=== PATIENT | female | born 1970 | race Asian ===

== ENCOUNTER 2023-08-22 15:55 | Outpatient (RCR) | payer OTHER, SELFPAY | END 2023-08-22 23:59 | disposition home or self-care (01) | LOC: RPT 15:55 | PROVIDERS: ATTENDING PHYSICIAN Nurse Practitioner Family; FAMILY PHYSICIAN Internal Medicine | DX: M25.552 Pain in left hip (principal) | CPT/HCPCS: 97110; 97140; 97161 ==

== ENCOUNTER → 2023-08-26 07:06 | Outpatient (REF) | payer BC, SELFPAY | LOC: WDC 07:06 | PROVIDERS: ATTENDING PHYSICIAN Internal Medicine | DX: Z12.31 Encounter for screening mammogram for malignant neoplasm of breast (principal) | CPT/HCPCS: 77063; 77067 ==

== ENCOUNTER 2023-09-12 15:14 | Outpatient (RCR) | payer OTHER, SELFPAY | END 2023-09-12 23:59 | disposition home or self-care (01) | LOC: RPT 15:14 | PROVIDERS: ATTENDING PHYSICIAN Nurse Practitioner Family; FAMILY PHYSICIAN Internal Medicine | DX: M25.552 Pain in left hip (principal); Z73.6 Limitation of activities due to disability; R20.2 Paresthesia of skin; R20.0 Anesthesia of skin; S73.192D Other sprain of left hip, subsequent encounter; W50.0XXD Accidental hit or strike by another person, subsequent encounter; Y93.F9 Activity, other caregiving; Y92.239 Unspecified place in hospital as the place of occurrence of the external cause; Y99.0 Civilian activity done for income or pay | CPT/HCPCS: 97110; 97112; 97140 ==

== ENCOUNTER 2024-03-14 17:09 | Emergency (ER) | payer OTHER, SELFPAY ==
[2024-03-14 17:23] VITALS: BP 115/66; BMI 23.1
--- NOTE | 2024-03-14 17:46 | ED.GENMED ---
History of Present Illness
General
Chief Complaint: Blood and Body Fluid Exposure
Source: patient
Exam Limitations: none
Time Seen by Provider: 03/14/24 17:30
History of Present Illness
History of Present Illness:
53-year-old female presents for potential blood exposure. She works here on the IV team and was helping with a PICC line and some fluid was taken off of the wire and splashed her in the eye. The wire was inside of the source patient. The source
patient is here as an inpatient. The floor of the source patient is is aware that this happened and source patient will be tested for communicable diseases. This patient washed her eye out copiously with water. She has no complaints otherwise
Past History
Past History
ED Past Medical History: None
ED Past Surgical History: None
Social History
Tobacco: Non-smoker
Alcohol: None
Drug: None
Personal:
Living: with family
Phy Exam
Physical Exam
Physical Exam:
General: Well-appearing female no acute distress
HEENT: Normocephalic sclera noninjected
Course
Orders/Labs/Results
Orders:
Orders
03/14/24 17:30
Pt has had a significant HIV exposure? Routine
HIV Exposure is significant?: Yes
HIV Combo Urgent
Hepatitis B Surface Antibody Urgent
Hepatitis B Surface Antigen Urgent
Hepatitis C Antibody Urgent
Vital Signs
Initial and Last Documented VS:
Initial Vital Signs
Temp Pulse Resp BP Pulse Ox
97.9 F 72 16 115/66 99
03/14/24 17:23 03/14/24 17:23 03/14/24 17:23 03/14/24 17:23 03/14/24 17:23
Last Documented Vital Signs
Temp Pulse Resp BP Pulse Ox
97.9 F 72 16 115/66 99
03/14/24 17:23 03/14/24 17:23 03/14/24 17:23 03/14/24 17:23 03/14/24 17:23
MDM/Problems Addressed
Differential Diagnosis Includes:
Potential blood exposure to the eye. This is low risk but exposure profile was drawn. The source patient will also be tested. Discussed option for postexposure prophylaxis however patient declined at this time. I think this is reasonable.
Stable for discharge and follow-up with occupational health
*Critical Care Note
Total Time (30-74mins, 75-104mins- exclusive of procedures): Not Applicable
ED Attending Note
-
Portions of this chart may have been created with voice recognition software.� Occasional wrong word or��sound alike� substitutions may have occurred due to the inherent limitations of voice recognition software.
Discharge Plan
Departure
Patient Disposition: Home (Routine Discharge)
Date of Disposition: 03/14/24
Time of Disposition: 17:48
Patient with high blood pressure during this ER visit?: No
Discharge Problem:
Exposure to blood
Prescriptions:
No Action
hydrocodone-acetaminophen 1 TABLET tablet
1 tab PO Q4HPRN PRN (Reason: severe pain) Qty: 20 0RF
Referrals:
Ronni Barber MD [Family Provider] -
Stand Alone Forms: Bl/Fluid Consent/Declination, Blood Body/Fluid Exposure
Activity Restrictions/Additional Instructions:
Please follow-up with occupational health
Interventions
Interventions:
*Risk Screen - Suicide Last Done: 03/14/24 17:23
*General Assessment Last Done: 03/14/24 17:23
*Neglect/Abuse Screening Last Done: 03/14/24 17:23
ED- Fall Risk Assessment Last Done: 03/14/24 17:23
*ED COVID-19 Vaccine History Last Done: 03/14/24 17:23
ED-EENT Assessment Last Done: 03/14/24 17:23
ED-Skin Assessment Last Done: 03/14/24 17:23
Discharge Date and Time
Print Language: CYMRO
[2024-03-14 20:53] LABS: Hepatitis B Surface Antigen Positive (Negative)
[2024-03-14 21:01] LABS: HIV Combo Negative (Negative)
[2024-03-14 21:10] LABS: Hepatitis B Surface Antibody Negative; Hepatitis C Antibody Negative (Negative)
== END 2024-03-14 17:54 | disposition home or self-care (01) ==
LOC: EMR 17:09
PROVIDERS: Physician Assistant; EMERGENCY PHYSICIAN Student in an Organized Health Care Education/Training Program; FAMILY PHYSICIAN Internal Medicine
DX: Z77.21 Contact with and (suspected) exposure to potentially hazardous body fluids (principal); Y99.0 Civilian activity done for income or pay
CPT/HCPCS: 99283; 86706; 86803; 87340; 87389

== ENCOUNTER → 2024-07-17 11:37 | Outpatient (REF) | payer BC, SELFPAY ==
[2024-07-17 13:13] LABS: % Basophils 1.1 % (0-2); % Eosinophils 1.6 % (0-6); % Immature Granulocytes 0.2 % (0-0.5); % Monocytes 5.1 % (1.7-9.3); Absolute Basophils 0.1 10^3/uL (0-0.2); Absolute Eosinophils 0.1 10^3/uL (0-0.7); Absolute Lymphocytes 1.8 10^3/uL (1.2-3.4); Absolute Monocytes 0.2 10^3/uL (0.1-0.6); Absolute Neutrophils 2.4 10^3/uL (1.4-6.5); Hematocrit 40.5 % (37.0-47.0); Hemoglobin 13.8 g/dL (12.0-16.0); Mean Corp Hgb Conc. 34.1 g/dL (33.0-37.0); Mean Corpuscular Hgb 30.8 pg (27.0-31.0); Mean Corpuscular Volume 90.4 fL (81.0-99.0); Nucleated Red Blood Cells % 0 %; Platelet Count 272 10^3/uL (130-400); Red Blood Cell Count 4.48 10^6/uL (4.20-5.40); Red Cell Dist. Width 12.9 % (11.5-14.5); White Blood Cell Count 4.5 10^3/uL (4.8-10.8)
[2024-07-17 14:18] LABS: ALT (SGPT) 26 U/L (0-35); AST (SGOT) 29 U/L (14-36); Albumin 4.6 g/dl (3.5-5.0); Alkaline Phosphatase 46 U/L (38-126); Blood Urea Nitrogen 17 mg/dl (7-17); Calcium 9.3 mg/dl (8.4-10.2); Carbon Dioxide 27 mmol/L (22-30); Chloride 102 mmol/L (98-107); Glucose 91 mg/dl (70-99); HDL Cholesterol 72 mg/dl; LDL Cholesterol, Calculated 118 mg/dl; Potassium 4.1 mmol/L (3.5-5.1); Sodium 139 mmol/L (135-145); Total Bilirubin 0.3 mg/dl (0.2-1.3); Total Cholesterol 199 mg/dl (50-199); Total Protein 7.8 g/dl (6.3-8.2); Triglyceride 48 mg/dl (10-149); Very Low Density Lipoprotein 9 mg/dl (0-30); eGFR > 60.00
[2024-07-17 14:49] LABS: TSH 1.45 uIU/ml (0.47-4.68)
[2024-07-17 14:53] LABS: AFP Male/Tumor Marker 2.82 ng/ml
[2024-07-17 14:55] LABS: Hepatitis B Surface Antigen Positive (Negative)
[2024-07-17 15:06] LABS: Hepatitis B Surface Antibody Negative
== END ==
LOC: REG 11:37
PROVIDERS: ATTENDING PHYSICIAN Internal Medicine
DX: Z00.00 Encounter for general adult medical examination without abnormal findings (principal); B18.1 Chronic viral hepatitis B without delta-agent
CPT/HCPCS: 36415; 80053; 80061; 82105; 84443; 85025; 86706; 87340; 87517

== ENCOUNTER → 2024-07-24 13:37 | Outpatient (REF) | payer BC, SELFPAY ==
[2024-07-24 14:56] LABS: FSH 60.6 mIU/ml
[2024-07-24 15:12] LABS: Estradiol 20.7 pg/ml
== END ==
LOC: REG 13:37
PROVIDERS: ATTENDING PHYSICIAN Obstetrics & Gynecology Gynecology
DX: N95.1 Menopausal and female climacteric states (principal)
CPT/HCPCS: 36415; 82670; 83001; 83002

== ENCOUNTER → 2024-09-06 14:10 | Outpatient (REF) | payer BC, SELFPAY | LOC: WDC 14:10 | PROVIDERS: ATTENDING PHYSICIAN Obstetrics & Gynecology Gynecology; FAMILY PHYSICIAN Internal Medicine | DX: Z12.31 Encounter for screening mammogram for malignant neoplasm of breast (principal); Z12.39 Encounter for other screening for malignant neoplasm of breast | CPT/HCPCS: 77063; 77067 ==

== ENCOUNTER → 2025-05-21 08:49 | Outpatient (REF) | payer OTHER, SELFPAY | LOC: RAD 08:49 | PROVIDERS: ATTENDING PHYSICIAN Nurse Practitioner Family | DX: M25.571 Pain in right ankle and joints of right foot (principal); M79.671 Pain in right foot | CPT/HCPCS: 73610; 73630 ==